=== PATIENT | female | born 1975 | race American Indian/Alaskan Native ===

== ENCOUNTER 2023-03-04 16:24 | Emergency (ER) | payer MEDICAID ==
[~2023-03-04] VITALS: Ht 152.4 cm; Wt 50.4 kg
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
[2023-03-04 20:19] VITALS: BP 105/63
--- NOTE | 2023-03-04 21:42 | EKG ---
[facility] [address] [place] [address] Signed Normal sinus rhythm Normal ECG No previous ECGs available Confirmed by Vivian Segovia MD () on 03/04/2023 9:41:48 PM Electronically Signed By: VIVINA SEGOVIA MD 03/04/232141 PATIENT NAME: BENNETT SALDANA Electrocardiogram DATE OF : 79 PHYSICIAN: VIVIAN SEGOVIA MD REPORT #: [id number] REPORT IS CONFIDENTIAL AND NOT TO BE RELEASED WITHOUT AUTHORIZATION
== END 2023-03-04 20:20 | disposition home or self-care (01) ==
LOC: ED 16:24
DX: R55 Syncope and collapse (principal); Z88.0 Allergy status to penicillin
CPT/HCPCS: 36415; 70450; 71045; 80053; 81003; 85025; 85610; 85730; 93005; 93010; 96374; 99285-25; A9270; G0480; J2405; J7030